=== PATIENT | female | born 1995 | race American Indian/Alaskan Native ===

== ENCOUNTER 2016-06-02 22:27 | Emergency (ER) | payer SELFPAY | END 2016-06-03 00:15 | disposition left against medical advice (07) | LOC: ED 22:27 | DX: R10.9 Unspecified abdominal pain (principal); M54.5 Low back pain; Z53.21 Procedure and treatment not carried out due to patient leaving prior to being seen by health care provider ==

== ENCOUNTER 2016-07-26 10:02 | Emergency (ER) | payer SELFPAY ==
[2016-07-26] MEDS ORDERED: DELTASONE PO ONE (12:02)
[2016-07-26 12:43] VITALS: BP 121/76
--- NOTE | 2016-07-26 18:50 | Emergency Department Report ---
Entered by JUAN ANAND, acting as scribe for ED WILKINS PA. - General Chief complaint: Skin Rash Stated complaint: 27 WKS/BREAK OUT MOUTH AREA Time Seen by Provider: 07/26/16 11:36 Source: patient Mode of arrival: Ambulatory Limitations: No Limitations - History of Present Illness Initial comments: 21 y/o female that is 27 weeks with a PMHx of oral lichen planus presents to the ED c/o an oral lichen planeus flare-up that began 1 week ago. Associated burning lesions to mouth and left hand, but she denies fever, chills , itching, nausea, and vomiting. Patient admits positive movement and denies vaginal bleeding or leakage of fluids, she notes seeing her OB in [place] regularly. Reports having a government instructor in [place], where she lived before moving to [place]. Denies having a government instructor currently to f/u with for flare-ups. LMP 01/13/2016. Allergic to penicillins. complaint: lesion (mouth and hand) Onset/Timin -: week(s) Location: face (mouth), L hand Severity: moderate Severity scale (0 -10): 6 Quality: burning Consistency: constant Improves with: none Worsens with: none Context: other (Hx of oral lichen planus) Associated symptoms: denies other symptoms, other (sore throat) Treatments Prior to Arrival: none - Related Data Previous Rx's Medication Instructions Recorded Last Taken Type Acetaminophen [Acetaminophen TAB] 500 mg PO TID #30 tablet 07/26/16 Unknown Rx Pot Sor/Hy-Ethylcel/Pvp/Hyalur 15 ml MM TID #12 gel.packet 07/26/16 Unknown Rx [Gelclair Oral Gel] predniSONE [Deltasone] 20 mg PO QDAY #10 tab 07/26/16 Unknown Rx Allergies Allergy/AdvReac Type Severity Reaction Status Date / Time Penicillins Allergy Hives Verified 12/09/14 11:25 Abscess Boil HPI - HPI Chief Complaint: Skin Rash Stated Complaint: 27 WKS/BREAK OUT MOUTH AREA Time Seen by Provider: 07/26/16 11:36 Duration: 1 Week Location: Other (mouth and left hand) Severity: Moderate (6/10) History: Yes Pain (burning pain to affected areas), No Fever, No Purulent Drainage, No Numbness, No Foreign Body, No Previous History, No Insect Bite Home Medications: Previous Rx's Medication Instructions Recorded Last Taken Type Acetaminophen [Acetaminophen TAB] 500 mg PO TID #30 tablet 07/26/16 Unknown Rx Pot Sor/Hy-Ethylcel/Pvp/Hyalur 15 ml MM TID #12 gel.packet 07/26/16 Unknown Rx [Gelclair Oral Gel] predniSONE [Deltasone] 20 mg PO QDAY #10 tab 07/26/16 Unknown Rx Allergies/Adverse Reactions: Allergies Allergy/AdvReac Type Severity Reaction Status Date / Time Penicillins Allergy Hives Verified 12/09/14 11:25 ED Review of Systems Comment: All other systems reviewed and negative Constitutional: no symptoms reported. denies: chills, diaphoresis, fever, weakness Eyes: denies: eye pain ENT: throat pain. denies: ear pain, dental pain Respiratory: no symptoms reported. denies: cough, shortness of breath, wheezing Cardiovascular: denies: chest pain, palpitations Gastrointestinal: denies: abdominal pain, nausea Skin: lesions (mouth and left hand). denies: rash Neurological: denies: headache, weakness, numbness ED Past Medical Hx - Past Medical History Additional medical history: ORAL EROSIVE LICHEN PLANUS - Surgical History Additional Surgical History: RIGHT THUMB - Social History Smoking Status: Never Smoker Substance Use Type: None - Medications Home Medications: Home Medications Medication Instructions Recorded Confirmed Last Taken Type Acetaminophen [Acetaminophen TAB] 500 mg PO TID #30 tablet 07/26/16 Unknown Rx Pot Sor/Hy-Ethylcel/Pvp/Hyalur 15 ml MM TID #12 gel.packet 07/26/16 Unknown Rx [Gelclair Oral Gel] predniSONE [Deltasone] 20 mg PO QDAY #10 tab 07/26/16 Unknown Rx ED Physical Exam - General Limitations: No Limitations General appearance: alert, in no apparent distress - Head Head exam: Present: atraumatic, normocephalic - Eye Eye exam: Present: normal appearance, PERRL, EOMI Pupils: Present: normal accommodation - ENT ENT exam: Present: mucous membranes moist, other (Lesions present on oral inner mucosa of upper and lower lips that are TTP) - Expanded ENT Exam Expanded Ear exam: Present: normal external inspection Mouth exam: Present: tongue normal, other (Lesions present on oral inner mucosa of upper and lower lips that are TTP). Absent: drooling, trismus, muffled voice , tongue elevation, laceration Teeth exam: Present: normal inspection Throat exam: Positive: normal inspection - Neck Neck exam: Present: normal inspection. Absent: tenderness, meningismus, full ROM - Respiratory Respiratory exam: Present: normal lung sounds bilaterally. Absent: respiratory distress, wheezes, rales, rhonchi, stridor - Cardiovascular Cardiovascular Exam: Present: regular rate, normal rhythm. Absent: systolic murmur, diastolic murmur, rubs, gallop - GI/Abdominal GI/Abdominal exam: Present: soft, distended (gravid abdomen), normal bowel sounds - Extremities Exam Extremities exam: Present: normal inspection, full ROM - Back Exam Back exam: Present: normal inspection - Neurological Exam Neurological exam: Present: alert, oriented X3 - Psychiatric Psychiatric exam: Present: normal affect, normal mood - Skin Skin exam: Present: warm, dry, intact. Absent: rash ED Course Vital Signs 07/26/16 07/26/16 10:19 12:42 Temperature 98.6 F 98.2 F Pulse Rate 118 H 99 H Respiratory 20 16 Rate Blood Pressure 123/79 Blood Pressure 121/76 [Left] O2 Sat by Pulse 100 100 Oximetry ED Medical Decision Making - Medical Decision Making 21-year-old female presents with oral lichen planus flare-up for 1 week ED course: Patient will be given prednisone. Patient is not ill-appearing. Lesions present on oral inner mucosa of upper and lower lips that are TTP. Discussed the follow-up with government instructor as referred. Discuss her symptoms return or worsen to return to the ED Patient states understanding and will follow instructions. Vital signs stable. Patient is in no acute distress. ED Disposition Clinical Impression: Oral lichen planus Disposition: DC-01 TO HOME OR SELFCARE Is pt being admited?: No Does the pt Need Aspirin: No Condition: Stable Instructions: Canker Sores (ED) Prescriptions: Acetaminophen [Acetaminophen TAB] 500 mg PO TID #30 tablet Pot Sor/Hy-Ethylcel/Pvp/Hyalur [Gelclair Oral Gel] 15 ml MM TID #12 gel.packet predniSONE [Deltasone] 20 mg PO QDAY #10 tab Referrals: PRIMARY CARE, [Primary Care Provider] - 3-5 Days TOMMY CLEMENTE MD [Staff Physician] - 3-5 Days NATHAN MA MD [Staff Physician] - 3-5 Days Forms: Work/School Release Form(ED) Time of Disposition: 12:29 This documentation as recorded by the KIKA valera JASMINE,accurately reflects the service I personally performed and the decisions made by ,ED WILKINS PA.
== END 2016-07-26 12:43 | disposition home or self-care (01) ==
LOC: ED 10:02
DX: O26.892 Other specified pregnancy related conditions, second trimester (principal); L43.9 Lichen planus, unspecified; Z88.0 Allergy status to penicillin; Z3A.27 27 weeks gestation of pregnancy
CPT/HCPCS: 99282; J7512